=== PATIENT | female | born 1985 | race Two or more races ===

== ENCOUNTER 2016-10-16 13:04 | Emergency (ER) | payer MEDICAID, OTHER ==
[~2016-10-16] VITALS: Ht 162.6 cm; Wt 81.6 kg
[2016-10-16 14:04] LABS: Basophils # (auto) 0 uL; Basophils % (auto) 0.4 % (0.0-2.0); Eosinophils # (auto) 0.2 uL; Eosinophils % (auto) 1.8 % (0.0-7.0); Hematocrit 37.8 % (36.0-46.0); Hemoglobin 12.1 g/dL (12.2-16.2); Lymphocytes # (auto) 2.1 uL; Lymphocytes % (auto) 18.9 % (10.0-50.0); Mean Corpuscular Hemoglobin 27.3 pg (28.0-32.0); Mean Corpuscular Hgb Conc. 31.9 g/dL (32.0-36.0); Mean Corpuscular Volume 85.7 fL (80.0-100.0); Mean Platelet Volume 7.2 fL (7.4-10.4); Monocytes # (auto) 0.5 uL; Monocytes % (auto) 4.1 % (0.0-12.0); Neutrophils # (auto) 8.3 uL; Neutrophils % (auto) 74.8 % (37.0-80.0); Platelet Count (auto) 294 10^3/uL (140-450); Red Cell Distribution Width 14.6 % (11.6-16.0); White Blood Cell 11.1 10^3/uL (4.4-10.8)
[2016-10-16 14:14] LABS: Urine Bilirubin Negative (Negative); Urine Blood Negative /uL (Negative); Urine Color Yellow (Yellow); Urine Glucose Normal (Normal); Urine Ketone Negative (Negative); Urine Mucus FEW (None Seen); Urine Nitrite Negative (Negative); Urine RBC <1 /hpf (0 - 4); Urine Squamous Epithelial Cell MOD /hpf (<5); Urine Urobilinogen Normal (Negative)
[2016-10-16] MEDS ORDERED: SODIUM CHLORIDE 0.9% 1,000 ML IV ONE (21:30)
[2016-10-16 21:57] LABS: Albumin 3.7 g/dL (3.4-5.0); BUN/Creatinine Ratio 12.8; Bilirubin, Total 0.4 mg/dL (0.2-1.0); Potassium 3.7 mmol/L (3.5-5.1)
[2016-10-16 23:04] VITALS: BP 122/67
[2016-10-16] MEDS ORDERED: NALBUPHINE HCL 10 MG/1ml INJECTION IV ONE (23:15)
== END 2016-10-16 23:28 | disposition home or self-care (01) ==
LOC: ER 13:11
DX: O26.891 Other specified pregnancy related conditions, first trimester (principal); O99.331 Smoking (tobacco) complicating pregnancy, first trimester; F17.210 Nicotine dependence, cigarettes, uncomplicated; Z87.442 Personal history of urinary calculi; Z3A.08 8 weeks gestation of pregnancy
CPT/HCPCS: 36415; 76705; 76801; 80053; 81001; 84702; 85025; 96361; 96374; 99285; J2300; J7030

== ENCOUNTER 2017-01-21 14:10 | Observation (INO) | payer MEDICAID ==
[~2017-01-21] VITALS: Ht 152.4 cm; Wt 84.8 kg
[2017-01-21] MEDS: LACTATED RINGER'S 2,000 ML IV ONE (15:15)
== END 2017-01-21 16:33 | disposition home or self-care (01) | DRG 566 ==
LOC: LDRP 14:10
PROVIDERS: ADMIT Obstetrics & Gynecology; ATTEND Obstetrics & Gynecology
DX: O26.892 Other specified pregnancy related conditions, second trimester (principal); Z3A.23 23 weeks gestation of pregnancy
CPT/HCPCS: 59025; 81002; 96360; G0378; 96366

== ENCOUNTER 2017-04-13 09:45 | Inpatient (IN) | payer MEDICAID ==
[~2017-04-13] VITALS: Ht 152.4 cm; Wt 90.7 kg
[2017-04-13] MEDS ORDERED: LACTATED RINGER'S 1,000 ML IV ONE (10:23)
[2017-04-13] MEDS ORDERED: LACTATED RINGER'S 1,000 ML IV SCH (10:23)
[2017-04-13] MEDS ORDERED: CLINDAMYCIN 900MG IV 50 ML IV ONE (11:00)
[2017-04-13] MEDS ORDERED: BETAMETHASONE ACET (6MG/ML) 5ML VIAL ONE (11:05)
[2017-04-13 11:55] LABS: Basophils # (auto) 0.1 uL; Basophils % (auto) 0.4 % (0.0-2.0); CONDITION Y; Eosinophils # (auto) 0.2 uL; Eosinophils % (auto) 1.5 % (0.0-7.0); Hematocrit 34.4 % (36.0-46.0); Hemoglobin 11.6 g/dL (12.2-16.2); Lymphocytes # (auto) 2.4 uL; Lymphocytes % (auto) 18.4 % (10.0-50.0); Mean Corpuscular Hemoglobin 28.3 pg (28.0-32.0); Mean Corpuscular Hgb Conc. 33.8 g/dL (32.0-36.0); Mean Corpuscular Volume 83.8 fL (80.0-100.0); Mean Platelet Volume 7.6 fL (7.4-10.4); Monocytes # (auto) 0.6 uL; Monocytes % (auto) 4.3 % (0.0-12.0); Neutrophils # (auto) 9.9 uL; Neutrophils % (auto) 75.4 % (37.0-80.0); Platelet Count (auto) 365 10^3/uL (140-450); Red Cell Distribution Width 14.4 % (11.6-16.0); White Blood Cell 13.2 10^3/uL (4.4-10.8)
[2017-04-13 11:58] LABS: Urine Bilirubin Negative (Negative); Urine Blood TRACE /uL (Negative); Urine Color Yellow (Yellow); Urine Glucose Normal (Normal); Urine Ketone Negative (Negative); Urine Mucus FEW (None Seen); Urine Nitrite Negative (Negative); Urine RBC 3 /hpf (0 - 4); Urine Squamous Epithelial Cell MOD /hpf (<5); Urine Urobilinogen Normal (Negative)
[2017-04-13 12:09] LABS: INR 0.91 (0.9-1.15); Partial Thromboplastin Time 24.8 sec (22.64-33.71); Prothrombin Time 9.9 sec (9.37-12.3)
[2017-04-13 12:18] LABS: Albumin 2.5 g/dL (3.4-5.0); BUN/Creatinine Ratio 12.2; Bilirubin, Total 0.2 mg/dL (0.2-1.0); Calcium 8.5 mg/dL (8.5-10.1); Total Protein 6.5 g/dL (6.4-8.2)
[2017-04-13] MEDS: LACTATED RINGER'S 1,000 ML IV SCH ×2 (12:38→20:38)
[2017-04-13] MEDS ORDERED: LACT. RINGERS/OXYTOCIN 20UNITS 1,000 ML IV SCH (12:38)
[2017-04-13] MEDS ORDERED: PHISODERM TOP SOLN 240ML BTL TOP PRN (12:45)
[2017-04-13] MEDS ORDERED: LIDOCAINE 2%HCL (LOCAL ANESTH.) INJ 20ML MDV IJ PRN (12:45)
[2017-04-13] MEDS ORDERED: WITCH HAZEL-GLYCERIN PAD TOP PRN (12:45)
[2017-04-13] MEDS ORDERED: NALBUPHINE HCL 10 MG/1ml INJECTION IV PRN (12:45)
[2017-04-13] MEDS ORDERED: DERMOPLAST 60ML BOTTLE TOP PRN (12:45)
[2017-04-13] MEDS: CLINDAMYCIN 900MG IV 50 ML IV SCH (19:03)
[2017-04-13] MEDS ORDERED: BETAMETHASONE ACET (6MG/ML) 5ML VIAL IM SCH (22:00)
[2017-04-14] MEDS: CLINDAMYCIN 900MG IV 50 ML IV SCH ×3 (03:09→19:25)
[2017-04-14] MEDS: BUTORPHANOL TARTRATE 2 MG/1 ML VIAL IV PRN ×2 (03:58→23:29)
[2017-04-14] MEDS: LACTATED RINGER'S 1,000 ML IV SCH ×3 (04:38→23:27)
[2017-04-14] MEDS ORDERED: BETAMETHASONE ACET (6MG/ML) 5ML VIAL IM SCH (11:30)
[2017-04-15] MEDS: CLINDAMYCIN 900MG IV 50 ML IV SCH (03:43)
[2017-04-15] MEDS: LACTATED RINGER'S 1,000 ML IV SCH (04:38)
[2017-04-15] MEDS: BUTORPHANOL TARTRATE 2 MG/1 ML VIAL IV PRN (04:51)
[2017-04-15] MEDS ORDERED: METHYLERGONOVINE MALEATE 0.2 MG/ML AMP IM ONE (07:45)
[2017-04-15] MEDS ORDERED: ACETAMINOPHEN 325 MG TAB PO PRN (07:45)
[2017-04-15] MEDS ORDERED: LACT. RINGERS/OXYTOCIN 20UNITS 1,000 ML IV SCH (08:36)
[2017-04-15] MEDS: IBUPROFEN 600 MG TAB PO PRN ×2 (09:23→16:39)
[2017-04-15] MEDS ORDERED: PREN-96 PO (11:39)
[2017-04-15] MEDS ORDERED: DOCU-94 PO (11:39)
[2017-04-15 11:41] VITALS: BP 118/59
[2017-04-15 16:27] VITALS: BP 133/76
[2017-04-15] MEDS: ACCU-CHEK COMFORT CURVE STRIP VI SCH (18:04)
[2017-04-15 19:15] VITALS: BP 121/70
[2017-04-15 23:40] VITALS: BP 118/60
[2017-04-16] MEDS: ACCU-CHEK COMFORT CURVE STRIP VI SCH (00:07)
[2017-04-16] MEDS: IBUPROFEN 600 MG TAB PO PRN ×2 (00:15→19:27)
[2017-04-16 04:30] VITALS: BP 110/59
[2017-04-16 07:30] VITALS: BP 130/81
[2017-04-16 12:17] VITALS: BP 130/76
[2017-04-16 15:48] VITALS: BP 114/74
[2017-04-16 19:20] VITALS: BP 123/76
[2017-04-16 23:08] VITALS: BP 123/74
[2017-04-17 03:07] VITALS: BP 118/60
[2017-04-17] MEDS: IBUPROFEN 600 MG TAB PO PRN ×2 (03:14→08:03)
[2017-04-17] MEDS ORDERED: MEASLES, MUMPS & RUBELLA VAC(MMRII) 0.5ML SC ONE (07:30)
[2017-04-17] MEDS ORDERED: TETANUS-DIPTH-ACEL PERTUSSIS 0.5ML SYRG IM ONE (07:30)
[2017-04-17 08:00] VITALS: BP 112/63
== END 2017-04-17 11:15 | disposition home or self-care (01) | DRG 560 ==
LOC: OBSVTOIN 09:45 → LDRP 09:45
PROVIDERS: ADMIT Specialist; ATTEND Specialist
PROC: 10E0XZZ Delivery of Products of Conception, External Approach (ICD-10-PCS; principal; 2017-04-17)
DX: O62.3 Precipitate labor (principal); O99.344 Other mental disorders complicating childbirth; F31.9 Bipolar disorder, unspecified; O42.913 Preterm premature rupture of membranes, unspecified as to length of time between rupture and onset of labor, third trimester; Z37.0 Single live birth; Z88.0 Allergy status to penicillin; Z3A.34 34 weeks gestation of pregnancy; Z88.8 Allergy status to other drugs, medicaments and biological substances; Z23 Encounter for immunization
CPT/HCPCS: 36415; 59025; 59409; 76805; 76818; 80053; 80307; 81001; 81002; 82947; 82948; 82962; 85025; 85610; 85730; 86850; 86900; 86901; 90472; 90715; 96361; 96366; 96372; 96375; J2590; J3490

== ENCOUNTER 2019-07-14 14:02 | Emergency (ER) | payer MEDICAID ==
[~2019-07-14] VITALS: Ht 152.4 cm; Wt 82.6 kg
[~2019-07-14 14:02] MED LIST: DOCU-94 PO; PREN-96 PO
[2019-07-14 14:30] LABS: Basophils # (auto) 0.1 uL; Eosinophils # (auto) 0.2 uL; Lymphocytes # (auto) 2.6 uL; Mean Corpuscular Hgb Conc. 33.3 g/dL (32.0-36.0); Monocytes # (auto) 0.3 uL; White Blood Cell 8.2 10^3/uL (4.4-10.8)
[2019-07-14 14:32] LABS: Basophils % (auto) 1.3 % (0.0-2.0); Eosinophils % (auto) 2.4 % (0.0-7.0); Hematocrit 37.9 % (36.0-46.0); Hemoglobin 12.6 g/dL (12.2-16.2); Lymphocytes % (auto) 31.3 % (10.0-50.0); Mean Corpuscular Hemoglobin 26.6 pg (28.0-32.0); Mean Corpuscular Volume 79.8 fL (80.0-100.0); Monocytes % (auto) 3.4 % (0.0-12.0); Neutrophils % (auto) 61.6 % (37.0-80.0); Platelet Count (auto) 354 10^3/uL (140-450); Red Blood Cells 4.75 10^6/uL (4.0-5.20); Red Cell Distribution Width 15.2 % (11.8-14.3)
[2019-07-14 14:53] LABS: BUN/Creatinine Ratio 10.1; Calcium 8.5 mg/dL (8.5-10.1); Potassium 3.9 mmol/L (3.5-5.1)
[2019-07-14 14:56] LABS: Bilirubin, Total 0.4 mg/dL (0.2-1.0); Total Protein 7.4 g/dL (6.4-8.2)
[2019-07-14 15:08] LABS: Urine Bacteria FEW /hpf (None Seen); Urine Blood Negative /uL (Negative); Urine Specific Gravity 1.018 (1.001-1.035); Urine WBC 3 /hpf (0 - 5)
[2019-07-14 19:47] VITALS: BP 106/61
== END 2019-07-14 20:10 | disposition home or self-care (01) ==
LOC: ER 14:02
DX: N39.0 Urinary tract infection, site not specified (principal); F17.210 Nicotine dependence, cigarettes, uncomplicated; Z88.0 Allergy status to penicillin; Z79.899 Other long term (current) drug therapy
CPT/HCPCS: 36415; 74176; 80053; 81001; 81025; 85025

== ENCOUNTER 2021-01-10 16:32 | Emergency (ER) | payer MEDICAID ==
[~2021-01-10] VITALS: Ht 152.4 cm; Wt 79.4 kg
[2021-01-10 17:38] VITALS: BP 150/89
== END 2021-01-10 17:52 | disposition home or self-care (01) ==
LOC: ER 16:32
DX: U07.1 COVID-19 (principal); J40 Bronchitis, not specified as acute or chronic; F17.210 Nicotine dependence, cigarettes, uncomplicated
CPT/HCPCS: 71045

== ENCOUNTER 2021-12-12 09:27 | Emergency (ER) | payer MEDICAID ==
[~2021-12-12] VITALS: Ht 152.4 cm; Wt 81.6 kg
[2021-12-12 10:03] LABS: Basophils # (auto) 0.1 10 ^3/uL (0-0.2); Basophils % (auto) 1.4 % (0.0-2.0); Eosinophils # (auto) 0.2 10 ^3/uL (0-0.8); Eosinophils % (auto) 2.4 % (0.0-7.0); Hematocrit 39.6 % (36.0-46.0); Hemoglobin 13.3 g/dL (12.2-16.2); Lymphocytes # (auto) 1.8 10 ^3/uL (0.4-5.4); Mean Corpuscular Hemoglobin 28.6 pg (28.0-32.0); Mean Corpuscular Hgb Conc. 33.5 g/dL (32.0-36.0); Mean Corpuscular Volume 85.4 fL (80.0-100.0); Monocytes # (auto) 0.3 10 ^3/uL (0-1.3); Monocytes % (auto) 3.9 % (0.0-12.0); Neutrophils # (auto) 4.9 10 ^3/uL (1.6-8.6); Neutrophils % (auto) 67.3 % (37.0-80.0); Red Blood Cells 4.64 10^6/uL (4.0-5.20); Red Cell Distribution Width 13.9 % (11.8-14.3); White Blood Cell 7.3 10^3/uL (4.4-10.8)
[2021-12-12 10:26] LABS: Calcium 8.8 mg/dL (8.5-10.1); Potassium 4.1 mmol/L (3.5-5.1)
[2021-12-12 10:32] LABS: BUN/Creatinine Ratio 11.1; Total Protein 7.8 g/dL (6.4-8.2)
[2021-12-12 11:26] VITALS: BP 129/78
[2021-12-12] MEDS ORDERED: ACET-1158 PO (11:58)
[2021-12-12] MEDS ORDERED: ALBUAER3 IN (11:58)
[2021-12-12] MEDS ORDERED: BENZ100C19 PO (11:58)
[2021-12-12] MEDS ORDERED: CLIN300C8 PO (11:58)
[2021-12-12] MEDS ORDERED: PRED20TA2 PO (11:58)
[2021-12-12] MEDS ORDERED: methylPREDNISolone SOD SUCC 125 MG/2 ML VL IM ONE (12:00)
[2021-12-12] MEDS ORDERED: cefTRIAXone SOD 1,000 MG VL IM ONE (12:00)
== END 2021-12-12 12:31 | disposition home or self-care (01) ==
LOC: ER 09:27
DX: J06.9 Acute upper respiratory infection, unspecified (principal); F17.210 Nicotine dependence, cigarettes, uncomplicated; J45.909 Unspecified asthma, uncomplicated; Z87.442 Personal history of urinary calculi; Z20.822 Contact with and (suspected) exposure to COVID-19
CPT/HCPCS: 36415; 71046; 80053; 84484; 85025; 85379; 87426; 96372; 99284; J0696; J2930

== ENCOUNTER 2023-11-29 19:39 | Emergency (ER) | payer MEDICAID ==
[~2023-11-29] VITALS: Ht 152.4 cm; Wt 84.5 kg
[~2023-11-29 19:39] MED LIST changes: +ACET500T58 PO; +ALBUAER3 IN; +BENZ100C19 PO; +CLIN300C70 PO; +PRED20TA2 PO
[2023-11-29] MEDS ORDERED: IBUP-1455 PO (20:26)
[2023-11-29] MEDS ORDERED: DIC250C PO (20:26)
[2023-11-29] MEDS: IBUPROFEN 600 MG TAB PO ONE (21:27)
[2023-11-29] MEDS: CEPHALEXIN 250 MG CAP PO ONE (21:27)
[2023-11-29 23:55] VITALS: BP 132/77; PULSE 77; RESP 17; TEMP 97.6; O2SAT 96
== END 2023-11-29 23:57 | disposition home or self-care (01) ==
LOC: ER 19:39
DX: N61.1 Abscess of the breast and nipple (principal); J45.909 Unspecified asthma, uncomplicated; F17.210 Nicotine dependence, cigarettes, uncomplicated; Z87.442 Personal history of urinary calculi; Z88.8 Allergy status to other drugs, medicaments and biological substances; Z79.899 Other long term (current) drug therapy

== ENCOUNTER 2023-12-16 11:50 | Emergency (ER) | payer MEDICAID ==
[~2023-12-16] VITALS: Ht 152.4 cm; Wt 83.3 kg
[~2023-12-16 11:50] MED LIST changes: +DIC250C PO; +IBUP-1455 PO
[2023-12-16 12:02] VITALS: BP 145/85; PULSE 73; RESP 16; TEMP 97.3; O2SAT 98
[2023-12-16] MEDS ORDERED: CYCL-837 PO (14:22)
[2023-12-16] MEDS: methylPREDNISolone SOD SUCC 125 MG/2 ML VL IM ONE (14:50)
[2023-12-16] MEDS: KETOROLAC TROMETH 30 MG/ML 1ML VIAL IM ONE (14:51)
== END 2023-12-16 15:00 | disposition home or self-care (01) ==
LOC: ER 11:50
DX: F41.9 Anxiety disorder, unspecified (principal); M43.6 Torticollis; J45.909 Unspecified asthma, uncomplicated; F17.210 Nicotine dependence, cigarettes, uncomplicated; Z79.1 Long term (current) use of non-steroidal anti-inflammatories (NSAID); Z79.2 Long term (current) use of antibiotics; Z79.899 Other long term (current) drug therapy; Z88.0 Allergy status to penicillin
CPT/HCPCS: 96372; 99284; J1885; J2930

== ENCOUNTER 2024-12-16 23:22 | Inpatient (IN) | payer MEDICAID ==
[~2024-12-16] VITALS: Ht 152.4 cm; Wt 81.1 kg
[~2024-12-16 23:22] MED LIST changes: +CLIN1CAP70 PO; -CLIN300C70 PO; +CYCL-837 PO
[2024-12-16 23:50] LABS: Urine Bacteria None Seen /hpf (None Seen)
[2024-12-17] VITALS (8 sets, daily range): BP systolic 120–137; BP diastolic 72–78; PULSE 67–81; RESP 16–18; TEMP 97.2–98.2; O2SAT 96–98
[2024-12-17 00:03] LABS: Urine Blood Negative /uL (Negative); Urine Clarity Clear (Clear); Urine Color Yellow (Yellow); Urine Mucus FEW (None Seen); Urine Protein, UAD Negative (Negative); Urine Specific Gravity 1.029 (1.001-1.035); Urine Squamous Epithelial Cell FEW /hpf (<5); Urine Urobilinogen 2 mg/dL (Negative); Urine WBC < 1 /HPF (0-5); Urine pH 5.5 (5.0-9.0)
--- NOTE | 2024-12-17 00:07 | ED.PDOC ---
HPI (NEURO) HPI Comments 39-year-old female came to emergency room for left-sided weakness. Patient has a history of asthma, states for the past 2 weeks, she has been having intermittent episodes left-sided numbness of upper and lower extremities, associated woth left sided headaches, tight, dizziness, slurred speech and blurring of vision. States left leg numbness gets so bad that at times she has to drag her left leg. States left-sided numbness occurs whenever she gets upset. Patient was advised by her PCP to go to the ER to rule out TIA. Blood pressure upon arrival was 122/66 mmHg. Chief Complaint: Left Sided Weakness Time Seen by MD: 00:04 Primary Care Provider: SHEMAR Reviewed Notes: Nurses Notes Information Source: Patient Mode of Arrival: Ambulatory Severity: Moderate Timing: Days Duration: Intermittent Associated Signs and Symptoms: Headache, Numbness Review of Systems REVIEW OF SYSTEMS: No fever, no chills, or fatigue HEENT: No sore throat, no earache, no congestion, no neck pain. Cardiac: No chest pain. No palpitations. Lungs: No shortness of breath, no cough. GI: No nausea, no vomiting, no diarrhea, no constipation, no abdominal pain : No dysuria, frequency, or urgency. No hematuria. Musculoskeletal: No joint pain , no joint swelling, no extremity edema. Skin: No rash, no itching. Neuro: (+) headache, no dizziness, no weakness (+) left sided numbness, (+) slurred speech Vital Signs Vital Signs Date Time Temp Pulse Resp B/P (MAP) Pulse Ox O2 Delivery O2 Flow Rate FiO2 12/17/24 02:22 97.7 74 18 137/72 (93) 96 97.7 12/17/24 02:22 Room Air Physical Exam General: Awake, alert and oriented. No acute distress. Skin: Skin in warm, dry and intact. Appropriate color for ethnicity. Nailbeds pink with no cyanosis. HEENT: The head is normocephalic and atraumatic. Conjunctivae are clear without exudates or hemorrhage. Sclera is non-icteric. EOM are intact. No signs of nystagmus. Eyelids are normal in appearance without swelling or lesions. Oral mucosa is pink and moist Neck: The neck is supple with normal range of motion. No JVD. Cardiac: Heart rate and rhythm are normal. No murmurs, gallops, or rubs are auscultated. Respiratory: No signs of respiratory distress. Lung sounds are clear in all lobes bilaterally without rales, ronchi, or wheezes. Abdominal: Abdomen is soft, non-tender without distention. Bowel sounds are present and normoactive in all four quadrants. Extremities: Upper and lower extremities are atraumatic in appearance without deformity or edema. Neurological: The patient is awake, alert and oriented to person, place, and time with normal speech. Speech is clear. There is no facial asymmetry. Strength in upper and lower extremities intact. Coordination intact. Psychiatric: Appropriate mood and affect. Good judgement and insight. No visual or auditory hallucinations. Past Medical History PAST MEDICAL HISTORY: Asthma, Kidney Stones Surgical History: Denies all surgeries [employer] History: Denies all [employer] Hx Family History Family History: Unknown, Family hx of HTN Social History Smoker: Cigarettes, Less Than 1 Pack/Day Alcohol: Rarely Drugs: Denies Drug Use Lives In: Home Was a procedure done? Was a procedure done?: No Differential Diagnosis (SZ) CVA: Kwon's Palsy, CVA, Encephalopathy, Hypoglycemia, Hypoxemia, Mass Lesion, TIA, Other (Migraine 100) X-Ray, Labs, Meds, VS Vital Signs Date Time Temp Pulse Resp B/P (MAP) Pulse Ox O2 Delivery O2 Flow Rate FiO2 12/17/24 02:22 97.7 74 18 137/72 (93) 96 97.7 12/17/24 02:22 74 18 96 Room Air 12/16/24 23:42 97.9 79 18 122/66 (84) 97 Lab Test 12/17/24 00:00 12/16/24 23:49 12/16/24 23:37 Range/Units White Blood Count 10.0 4.4-10.8 10^3/uL Red Blood Count 4.47 4.0-5.20 10^6/uL Hemoglobin 13.5 12.2-16.2 g/dL Hematocrit 38.9 36.0-46.0 % Mean Corpuscular Volume 87.1 80.0-100.0 fL Mean Corpuscular Hemoglobin 30.1 28.0-32.0 pg Mean Corpuscular Hemoglobin Concent 34.6 32.0-36.0 g/dL Red Cell Distribution Width 13.4 11.8-14.3 % Platelet Count 299 140-450 10^3/uL Mean Platelet Volume 6.8 L 6.9-10.8 fL Neutrophils (%) (Auto) 56.0 37.0-80.0 % Lymphocytes (%) (Auto) 36.3 10.0-50.0 % Monocytes (%) (Auto) 4.1 0.0-12.0 % Eosinophils (%) (Auto) 2.8 0.0-7.0 % Basophils (%) (Auto) 0.8 0.0-2.0 % Neutrophils # (Auto) 5.6 1.6-8.6 10 ^3/uL Lymphocytes # (Auto) 3.6 0.4-5.4 10 ^3/uL Monocytes # (Auto) 0.4 0-1.3 10 ^3/uL Eosinophils # (Auto) 0.3 0-0.8 10 ^3/uL Basophils # (Auto) 0.1 0-0.2 10 ^3/uL Nucleated Red Blood Cells 0.1 % Sodium Level 140 136-145 mmol/L Potassium Level 4.1 3.5-5.1 mmol/L Chloride Level 108 H 98-107 mmol/L Carbon Dioxide Level 25 20-31 mmol/L Anion Gap 7 5-15 Blood Urea Nitrogen 8 L 9-23 mg/dL Creatinine 0.68 0.550-1.02 mg/dL Glomerular Filtration Rate Calc 113 >90 mL/min BUN/Creatinine Ratio 11.8 10.0-20.0 Serum Glucose 130 H 74-106 mg/dL Calcium Level 10.1 8.7-10.4 mg/dL Total Bilirubin 0.4 0.2-1.0 mg/dL Aspartate Amino Transferase (AST) 22 13-40 U/L Alanine Aminotransferase (ALT) 55 H 7-40 U/L Alkaline Phosphatase 101 46-116 U/L Troponin I High Sensitivity < 3 L </=34 ng/L Total Protein 7.2 5.7-8.2 g/dL Albumin 4.9 H 3.2-4.8 g/dL Urine Color Yellow Yellow Urine Clarity Clear Clear Urine pH 5.5 5.0-9.0 Urine Specific [place] 1.029 1.001-1.035 Urine Protein Negative Negative Urine Ketones Trace Negative Urine Blood Negative Negative /uL Urine Nitrite Negative Negative Urine Bilirubin Negative Negative Urine Urobilinogen 2 H Negative mg/dL Urine Leukocyte Esterase Negative Negative /uL Urine RBC 1 0 - 4 /hpf Urine Microscopic WBC < 1 0-5 /HPF Urine Squamous Epithelial Cells Few <5 /hpf Urine Bacteria None seen None Seen /hpf Urine Mucus Few None Seen Urine Glucose Normal Normal mg/dL POC Glucose 122 H 70-106 mg/dl PROCEDURE(s): Anghedneck - ANGIO HEAD/Neck INDICATION: Intermittent left-sided weakness and numbness COMPARISON: None TECHNIQUE: CTA imaging of the head and neck was performed following the uneventful administration of intravenous contrast. Sagittal and coronal reformatted images were obtained from the source data. 3D/MIP post-processing of the source data set was performed and reviewed by the radiologist. All CT scans at this medical facility are performed using dose modulation techniques as appropriate to a performed exam including the following: Automated exposure control was utilized; adjustment of the MA and/or KV according to patient size; and use of iterative reconstruction technique. Radiation Dose Information: CT Dose: CTDI volume is 20.8 mGy. Dose-length product is 947.5 mGy*cm FINDINGS: There is a 3-vessel arch. The common carotid arteries are widely patent with left retropharyngeal course internal carotid, middle cerebral, and anterior cerebral arteries are widely patent. The vertebral arteries are left dominant. The basilar artery and posterior circulation appears patent. Visualized intracranial structures appear grossly unremarkable. Ventricles appear appropriate in size and symmetry. No evidence of midline shift. The thyroid gland appears prominent. Prominent prevascular lymph node measuring up to 1.0 cm. Pulmonary artery appears dilated measuring 4.0 cm. IMPRESSION: 1. Essentially unremarkable CT angiography of the head and neck with ret ropharyngeal course of the left common carotid artery. 2. Dilated pulmonary arterial trunk measuring 4.0 cm can be be seen in pulmonary arterial hypertension. 3. Enlarged thyroid gland. Time of 1ST Reevaluation: 00:00 Reevaluation 1ST: Unchanged Patient Education/Counseling: Diagnosis, Treatment Family Education/Counseling: No Family Present Departure 1 Departure Time of Disposition: 03:27 Impression: Primary Impression: Left-sided weakness Disposition: ADMITTED INPATIENT Condition: Stable Comments 39-year-old female with several weeks of intermittent episodes of left-sided weakness associated with headache, left-sided facial drooping. Patient presents to the emergency department asymptomatic at this time however she was referred from her PCP office today for further evaluation for suspected TIAs. No neuro deficit on exam today. CT angiogram reviewed, negative. Patient admitted for further treatment, evaluation and monitoring including MRI and Neurology consultation. Extensive evaluation was performed in attempt to identify or rule out: (See differential diagnosis section) The following tests were ordered, and results were reviewed by me: (See diagnostic results section) The following test were independently interpreted by me: . N/A I reviewed and agreed with the following test results read by other providers: N/A I reviewed the following notes from the pt's past medical encounters: (None available at this time) Additional information was gathered from interviewing the following independent historians: N/A Discussion of management or test interpretation with external physician/other qualified health transitional care nurse: N/A Addressed an acute or chronic illness that poses a threat to life or bodily function: Intermittent left-sided weakness Decision regarding hospitalization or escalation of hospital level of care: Risk and benefits of admission for further treatment of patient's condition was considered. Due to patient's current clinical condition, high risk of decline and poor outcome if discharged and need for further inpatient management and monitoring, patient will be admitted to the hospital. Discussed this with the patient Critical Care Note Critical Care Time?: No I personally scribed for DOMINGO DELGADO MD ([email or web address]) on 12/17/24 at 00:07. Electronically submitted by Faustino Thompson ([email or web address]). I personally scribed for DOMINGO DELGDAO MD ([email or web address]) on 12/17/24 at 03:38. Electronically submitted by Faustino Thompson ([email or web address]). DOMINGO DELGADO MD Dec 17, 2024 00:07
[2024-12-17 00:16] LABS: Basophils # (auto) 0.1 10 ^3/uL (0-0.2); Basophils % (auto) 0.8 % (0.0-2.0); Eosinophils # (auto) 0.3 10 ^3/uL (0-0.8); Eosinophils % (auto) 2.8 % (0.0-7.0); Hematocrit 38.9 % (36.0-46.0); Hemoglobin 13.5 g/dL (12.2-16.2); Lymphocytes # (auto) 3.6 10 ^3/uL (0.4-5.4); Lymphocytes % (auto) 36.3 % (10.0-50.0); Mean Corpuscular Hemoglobin 30.1 pg (28.0-32.0); Mean Corpuscular Hgb Conc. 34.6 g/dL (32.0-36.0); Mean Corpuscular Volume 87.1 fL (80.0-100.0); Monocytes # (auto) 0.4 10 ^3/uL (0-1.3); Monocytes % (auto) 4.1 % (0.0-12.0); Neutrophils # (auto) 5.6 10 ^3/uL (1.6-8.6); Nucleated Red Blood Cells % 0.1 %; Platelet Count (auto) 299 10^3/uL (140-450); Red Blood Cells 4.47 10^6/uL (4.0-5.20); Red Cell Distribution Width 13.4 % (11.8-14.3)
[2024-12-17 01:17] LABS: Alanine Aminotransferase 55 U/L (7-40); Albumin 4.9 g/dL (3.2-4.8); Alkaline Phosphatase 101 U/L (46-116); Anion Gap 7 (5-15); Aspartate Aminotransferase 22 U/L (13-40); Bilirubin, Total 0.4 mg/dL (0.2-1.0); Calcium 10.1 mg/dL (8.7-10.4); Carbon Dioxide 25 mmol/L (20-31); Chloride 108 mmol/L (98-107); Glucose 130 mg/dL (74-106); Potassium 4.1 mmol/L (3.5-5.1); Sodium 140 mmol/L (136-145); Total Protein 7.2 g/dL (5.7-8.2)
[2024-12-17 01:48] LABS: BUN/Creatinine Ratio 11.8 (10.0-20.0)
[2024-12-17 01:57] LABS: Blood Urea Nitrogen 8 mg/dL (9-23)
[2024-12-17] MEDS: IOHEXOL 350 MG/ML 100ML IJ ONE (02:28)
--- NOTE | 2024-12-17 03:14 | DVH ---
INDICATION: Intermittent left-sided weakness and numbness COMPARISON: None TECHNIQUE: CTA imaging of the head and neck was performed following the uneventful administration of intravenous contrast. Sagittal and coronal reformatted images were obtained from the source data. 3D/MIP post-processing of the source data set was performed and reviewed by the radiologist. All CT s cans at this medical facility are performed using dose modulation techniques as appropriate to a perf ormed exam including the following: Automated exposure control was utilized; adjustment of the MA and /or KV according to patient size; and use of iterative reconstruction technique. Radiation Dose Information: CT Dose: CTDI volume is 20.8 mGy. Dose-length product is 947.5 mGy*cm FINDINGS: There is a 3-vessel arch. The common carotid arteries are widely patent with left retropharyngeal cou rse internal carotid, middle cerebral, and anterior cerebral arteries are widely patent. The vertebra l arteries are left dominant. The basilar artery and posterior circulation appears patent. Visualized intracranial structures appear grossly unremarkable. Ventricles appear appropriate in size and symmetry. No evidence of midline shift. The thyroid gland appears prominent. Prominent prevascul ar lymph node measuring up to 1.0 cm. Pulmonary artery appears dilated measuring 4.0 cm. IMPRESSION: 1. Essentially unremarkable CT angiography of the head and neck with retropharyngeal course of the le ft common carotid artery. 2. Dilated pulmonary arterial trunk measuring 4.0 cm can be be seen in pulmonary arterial hypertensio n. 3. Enlarged thyroid gland. HS:Y
[2024-12-17] MEDS ORDERED: ONDANSETRON HCL 4 MG/2 ML VIAL IV PRN (04:45)
[2024-12-17] MEDS ORDERED: NITROGLYCERIN 0.4 MG SL TAB SL PRN (04:45)
[2024-12-17] MEDS ORDERED: HYDROcodone-ACET 5/325MG TAB PO PRN (04:45)
[2024-12-17] MEDS ORDERED: ACETAMINOPHEN 325 MG TAB PO PRN (04:45)
[2024-12-17] MEDS ORDERED: DOCUSATE SOD 100 MG CAP PO PRN (04:45)
[2024-12-17] MEDS ORDERED: MORPHINE SULFATE INJ 2 MG/ml SYRG IV PRN (04:45)
--- NOTE | 2024-12-17 05:04 | DVHHP2 ---
History of Present Illness Reason for Visit: Left-sided weakness History of Present Illness The patient is a 39-year-old female with past medical history of asthma and kidney stones who presented to [facility] ED with complaint of left- sided weakness. Patient reports experiencing intermittent episode of left-sided weakness of upper and lower extremity for the past 2 weeks, associated headaches, lightheadedness, dizziness, slurred speech, blurry vision, left leg numbness, getting worse today that prompted this visit. Patient was seen and evaluated in the ED, laboratory data shows WBC 10.0, platelets 299, sodium 140, potassium 4.1, BUN 8, creatinine 0.68, glucose 130, troponin 3, blood pressure 137/72, heart rate 74, temperature 97.7 F, O2 saturation 96% on room air. CT of the head/neck revealing dilated pulmonary artery trunk measuring 4.8 cm can be seen in pulmonary arterial hypertension, enlarged thyroid gland. Neurology will follow the patient. Please see medication orders section in the computer. On my assessment, patient denies chest pain, no headache, no diaphoresis, no shortness of breath, no nausea, no vomiting, no fever, no chills. Patient was admitted for further evaluation and medical management. Past Medical History Asthma, Kidney Stones Past Surgical History Denies all surgeries Family History Reviewed, noncontributory to the management of this case. Past Social History Patient lives at home, smokes cigarettes less than 1 pack per day, denies alcohol or illicit drugs abuse. Review of Systems Constitutional: Yes: Weakness; No: Fever, Chills, Sweats, Malaise, Other Eyes: No: Pain, Vision change, Conjunctivae inflammation, Eyelid inflammation, Other, Redness ENT: No: Ear pain, Ear discharge, Nose pain, Nose discharge, Nose congestion, Mouth pain, Mouth swelling, Throat pain, Throat swelling, Other Respiratory: No: Cough, Dry, Shortness of breath, SOB with excertion, Wheezing, Hemoptysis, Pleuritic Pain, Sputum, Wheezing, Other Cardiovascular: Lt Headedness; No: Chest Pain, Palpitations, Orthopnea, Paroxysmal Noc. Dyspnea, Edema, Other Gastrointestinal: No: Nausea, Vomiting, Abdominal Pain, Diarrhea, Constipation, Melena, Hematochezia, Other Genitourinary: No Dysuria, No Frequency, No Incontinence, No Hematuria, No Retention, No Other Musculoskeletal: No: other, neck pain, shoulder pain, arm pain, back pain, hand pain, leg pain, foot pain Skin: No: Rash, Lesions, Jaundice, Bruising, Other Neurological: Weakness (Left-sided), Numbness (Left leg), Other (Dizziness); No: Incoordination, Change in speech, Confusion, Seizures Allergies: Coded Allergies: Latex (Verified Allergy, Unknown, 12/16/24) Penicillin V (Verified Allergy, Unknown, 01/21/17) Uncoded Allergies: ALL CILLINS (Allergy, Unknown, 01/21/17) Exam Vital Signs Vital Signs Date Time Temp Pulse Resp B/P (MAP) Pulse Ox O2 Delivery O2 Flow Rate FiO2 12/17/24 02:22 97.7 74 18 137/72 (93) 96 97.7 12/17/24 02:22 Room Air General Appearance: Alert, Oriented X3, Cooperative, No acute distress HEENT: Atraumatic, PERRLA, EOMI, Mucous membr. moist/pink Respiratory: Clear to auscultation, Normal air movement Cardiovascular: Regular rate, Normal S1, Normal S2, No murmurs Abdominal: Normal bowel sounds, Soft, No tenderness, No hepatospenomegaly, No masses Extremities: No clubbing, No cyanosis, No edema, Normal pulses, No tenderness/swelling Skin: No rashes, No breakdown, No significant lesion Neuro: Normal speech, Normal tone, Sensation intact, Cranial nerves 3-12 NL, Reflexes 2+, Other (Left-sided weakness) Psych/Mental Status: Mental status NL, Mood NL Labs/Xrays Labs Test 12/17/24 00:00 12/16/24 23:49 12/16/24 23:37 Range/Units White Blood Count 10.0 4.4-10.8 10^3/uL Red Blood Count 4.47 4.0-5.20 10^6/uL Hemoglobin 13.5 12.2-16.2 g/dL Hematocrit 38.9 36.0-46.0 % Mean Corpuscular Volume 87.1 80.0-100.0 fL Mean Corpuscular Hemoglobin 30.1 28.0-32.0 pg Mean Corpuscular Hemoglobin Concent 34.6 32.0-36.0 g/dL Red Cell Distribution Width 13.4 11.8-14.3 % Platelet Count 299 140-450 10^3/uL Mean Platelet Volume 6.8 L 6.9-10.8 fL Neutrophils (%) (Auto) 56.0 37.0-80.0 % Lymphocytes (%) (Auto) 36.3 10.0-50.0 % Monocytes (%) (Auto) 4.1 0.0-12.0 % Eosinophils (%) (Auto) 2.8 0.0-7.0 % Basophils (%) (Auto) 0.8 0.0-2.0 % Neutrophils # (Auto) 5.6 1.6-8.6 10 ^3/uL Lymphocytes # (Auto) 3.6 0.4-5.4 10 ^3/uL Monocytes # (Auto) 0.4 0-1.3 10 ^3/uL Eosinophils # (Auto) 0.3 0-0.8 10 ^3/uL Basophils # (Auto) 0.1 0-0.2 10 ^3/uL Nucleated Red Blood Cells 0.1 % Sodium Level 140 136-145 mmol/L Potassium Level 4.1 3.5-5.1 mmol/L Chloride Level 108 H 98-107 mmol/L Carbon Dioxide Level 25 20-31 mmol/L Anion Gap 7 5-15 Blood Urea Nitrogen 8 L 9-23 mg/dL Creatinine 0.68 0.550-1.02 mg/dL Glomerular Filtration Rate Calc 113 >90 mL/min BUN/Creatinine Ratio 11.8 10.0-20.0 Serum Glucose 130 H 74-106 mg/dL Calcium Level 10.1 8.7-10.4 mg/dL Total Bilirubin 0.4 0.2-1.0 mg/dL Aspartate Amino Transferase (AST) 22 13-40 U/L Alanine Aminotransferase (ALT) 55 H 7-40 U/L Alkaline Phosphatase 101 46-116 U/L Troponin I High Sensitivity < 3 L </=34 ng/L Total Protein 7.2 5.7-8.2 g/dL Albumin 4.9 H 3.2-4.8 g/dL Urine Color Yellow Yellow Urine Clarity Clear Clear Urine pH 5.5 5.0-9.0 Urine Specific [place] 1.029 1.001-1.035 Urine Protein Negative Negative Urine Ketones Trace Negative Urine Blood Negative Negative /uL Urine Nitrite Negative Negative Urine Bilirubin Negative Negative Urine Urobilinogen 2 H Negative mg/dL Urine Leukocyte Esterase Negative Negative /uL Urine RBC 1 0 - 4 /hpf Urine Microscopic WBC < 1 0-5 /HPF Urine Squamous Epithelial Cells Few <5 /hpf Urine Bacteria None seen None Seen /hpf Urine Mucus Few None Seen Urine Glucose Normal Normal mg/dL POC Glucose 122 H 70-106 mg/dl PATIENT: EFE FRENCHT: [id number] UNIT: [id number] : 1985 LOC: ER ROOM / BED: / AGE / SEX: 39 / F ADM STATUS: REG ER SERVICE [id number] ORDERING PHYSICIAN: DOMINGO DELGADO MD PROCEDURE(s): Anghedneck - ANGIO HEAD/Neck REASON: Intermittent left-sided weakness and numbness ORDER NUMBER(s): [id number], ACCESSION NUMBER(s): [id number] INDICATION: Intermittent left-sided weakness and numbness COMPARISON: None TECHNIQUE: CTA imaging of the head and neck was performed following the uneventful administration of intravenous contrast. Sagittal and coronal reformatted images were obtained from the source data. 3D/MIP post-processing of the source data set was performed and reviewed by the radiologist. All CT scans at this medical facility are performed using dose modulation techniques as appropriate to a performed exam including the following: Automated exposure control was utilized; adjustment of the MA and/or KV according to patient size; and use of iterative reconstruction technique. Radiation Dose Information: CT Dose: CTDI volume is 20.8 mGy. Dose-length product is 947.5 mGy*cm FINDINGS: There is a 3-vessel arch. The common carotid arteries are widely patent with left retropharyngeal course internal carotid, middle cerebral, and anterior cerebral arteries are widely patent. The vertebral arteries are left dominant. The basilar artery and posterior circulation appears patent. Visualized intracranial structures appear grossly unremarkable. Ventricles appear appropriate in size and symmetry. No evidence of midline shift. The thyroid gland appears prominent. Prominent prevascular lymph node measuring up to 1.0 cm. Pulmonary artery appears dilated measuring 4.0 cm. IMPRESSION: 1. Essentially unremarkable CT angiography of the head and neck with retropharyngeal course of the left common carotid artery. 2. Dilated pulmonary arterial trunk measuring 4.0 cm can be be seen in pulmonary arterial hypertension. 3. Enlarged thyroid gland. Assessment/Plan Assessment/Plan Left-sided weakness Pulmonary hypertension Plan 1. Admit to telemetry unit 2. Breathing treatment 3. Pain control management 4. Management of fluids and electrolytes 5. Consultation for neurology 6. Diagnostic tests head CT 7. DVT prophylaxis on SCDs 8. Repeat labs CBC, CMP in a.m. 9. Continue with current medical management 10. Treatment plan discussed with patient and RN. Patient verbalized understanding. Plan discussed with: Patient, Other (RN) Problem List: (1) Left-sided weakness (2) Pulmonary hypertension Date of Service: Dec 17, 2024 Billing Provider: ALL GUALLPA DNP Common Visit Codes: [id number] INP/OBS CARE (HIGH) ALL GUALLPA DNP Dec 17, 2024 05:04
[2024-12-17] MEDS: SODIUM CHLOR 0.9% PF (SALINE LOCK) 10ML VIAL/SYR IV SCH (05:48)
[2024-12-17 06:28] LABS: Carbon Dioxide 27 mmol/L (20-31); Potassium 4.6 mmol/L (3.5-5.1)
[2024-12-17 06:29] LABS: Anion Gap 6 (5-15); Aspartate Aminotransferase 26 U/L (13-40); BUN/Creatinine Ratio 11.6 (10.0-20.0); Basophils # (auto) 0 10 ^3/uL (0-0.2); Basophils % (auto) 0.6 % (0.0-2.0); Bilirubin, Total 0.4 mg/dL (0.2-1.0); Eosinophils # (auto) 0.2 10 ^3/uL (0-0.8); Eosinophils % (auto) 2.7 % (0.0-7.0); Hematocrit 42.8 % (36.0-46.0); Hemoglobin 14.4 g/dL (12.2-16.2); Lymphocytes # (auto) 2.8 10 ^3/uL (0.4-5.4); Lymphocytes % (auto) 32.6 % (10.0-50.0); Mean Corpuscular Hemoglobin 29.4 pg (28.0-32.0); Mean Corpuscular Hgb Conc. 33.6 g/dL (32.0-36.0); Mean Corpuscular Volume 87.6 fL (80.0-100.0); Monocytes # (auto) 0.4 10 ^3/uL (0-1.3); Monocytes % (auto) 4.7 % (0.0-12.0); Neutrophils # (auto) 5.1 10 ^3/uL (1.6-8.6); Neutrophils % (auto) 59.4 % (37.0-80.0); Nucleated Red Blood Cells % 0.1 %; Platelet Count (auto) 321 10^3/uL (140-450); Red Blood Cells 4.89 10^6/uL (4.0-5.20); Red Cell Distribution Width 13.8 % (11.8-14.3); Sodium 141 mmol/L (136-145); Total Protein 7.8 g/dL (5.7-8.2); White Blood Cell 8.5 10^3/uL (4.4-10.8)
[2024-12-17 06:34] LABS: Chloride 108 mmol/L (98-107)
[2024-12-17 06:35] LABS: Alanine Aminotransferase 64 U/L (7-40); Albumin 5.2 g/dL (3.2-4.8); Alkaline Phosphatase 116 U/L (46-116); Blood Urea Nitrogen 8 mg/dL (9-23); Calcium 10.5 mg/dL (8.7-10.4); Glucose 131 mg/dL (74-106)
[2024-12-17] MEDS ORDERED: OMEP-434 PO (17:17)
[2024-12-17] MEDS ORDERED: CHOL20007 OR (17:18)
[2024-12-18] VITALS (10 sets, daily range): BP systolic 99–128; BP diastolic 41–72; PULSE 58–82; RESP 17–19; TEMP 36.6; O2SAT 90–100
[2024-12-18 05:58] LABS: Basophils # (auto) 0 10 ^3/uL (0-0.2); Basophils % (auto) 0.5 % (0.0-2.0); Eosinophils # (auto) 0.3 10 ^3/uL (0-0.8); Eosinophils % (auto) 3.4 % (0.0-7.0); Hematocrit 38.8 % (36.0-46.0); Hemoglobin 13.4 g/dL (12.2-16.2); Lymphocytes # (auto) 2.9 10 ^3/uL (0.4-5.4); Mean Corpuscular Hemoglobin 29.7 pg (28.0-32.0); Mean Corpuscular Hgb Conc. 34.5 g/dL (32.0-36.0); Mean Corpuscular Volume 86.2 fL (80.0-100.0); Monocytes # (auto) 0.5 10 ^3/uL (0-1.3); Monocytes % (auto) 5.8 % (0.0-12.0); Neutrophils # (auto) 4.8 10 ^3/uL (1.6-8.6); Neutrophils % (auto) 56.3 % (37.0-80.0); Nucleated Red Blood Cells % 0.1 %; Platelet Count (auto) 286 10^3/uL (140-450); Red Blood Cells 4.51 10^6/uL (4.0-5.20); Red Cell Distribution Width 13.3 % (11.8-14.3); White Blood Cell 8.5 10^3/uL (4.4-10.8)
[2024-12-18 06:21] LABS: Alkaline Phosphatase 92 U/L (46-116); Anion Gap 8 (5-15); BUN/Creatinine Ratio 12.9 (10.0-20.0); Calcium 9.8 mg/dL (8.7-10.4); Carbon Dioxide 25 mmol/L (20-31); Sodium 140 mmol/L (136-145); Total Protein 6.9 g/dL (5.7-8.2)
[2024-12-18 06:22] LABS: Albumin 4.6 g/dL (3.2-4.8); Aspartate Aminotransferase 30 U/L (13-40); Bilirubin, Total 0.6 mg/dL (0.2-1.0)
[2024-12-18 06:28] LABS: Alanine Aminotransferase 59 U/L (7-40); Blood Urea Nitrogen 8 mg/dL (9-23); Chloride 107 mmol/L (98-107); Glucose 110 mg/dL (74-106)
[2024-12-18] MEDS: ALBUTEROL SULF 2.5 MG/0.5ML(0.5%) NEB SOLN NEB PRN (09:00)
[2024-12-18] MEDS: LORazepam 2MG/ML-1ML VIAL IV ONE (14:16)
--- NOTE | 2024-12-18 15:33 | DVH ---
EXAM: MRI BRAIN HEAD WO CONTRAST HISTORY: SUSPECTED TIA COMPARISON: None TECHNIQUE: MRI was performed utilizing multiple appropriate imaging planes and pulse sequences. FINDINGS: SUPRATENTORIAL REGION: No evidence for acute ischemia or intracranial hemorrhage. POSTERIOR FOSSA: Unremarkable. BRAINSTEM: Unremarkable. SELLAR/SUPRASELLAR REGION: Unremarkable. VENTRICLES, CISTERNS, SULCI: Age-appropriate. ORBITS: Unremarkable. PARANASAL SINUSES: Mild ethmoid sinus mucosal thickening. Small mucous retention cyst noted in maxil clau and sphenoid sinuses. MASTOID AIR CELLS: Unremarkable. VASCULATURE: Unremarkable. BONES/ SOFT TISSUES: Unremarkable. OTHER: None. IMPRESSION: 1. No acute intracranial process identified.
[2024-12-18] MEDS ORDERED: ATOR-507 PO (16:01)
[2024-12-18] MEDS ORDERED: ASPI81CH59 PO (16:01)
--- NOTE | 2024-12-18 16:04 | DVHDS2 ---
Discharge Summary Date of Admission Dec 17, 2024 at 04:41 Date of Discharge: Dec 18, 2024 Labs/Diagnostic Data: Laboratory Results Test 12/18/24 04:35 12/17/24 00:00 12/16/24 23:49 12/16/24 23:37 White Blood Count 8.5 10^3/uL (4.4-10.8) Red Blood Count 4.51 10^6/uL (4.0-5.20) Hemoglobin 13.4 g/dL (12.2-16.2) Hematocrit 38.8 % (36.0-46.0) Mean Corpuscular Volume 86.2 fL (80.0-100.0) Mean Corpuscular Hemoglobin 29.7 pg (28.0-32.0) Mean Corpuscular Hemoglobin Concent 34.5 g/dL (32.0-36.0) Red Cell Distribution Width 13.3 % (11.8-14.3) Platelet Count 286 10^3/uL (140-450) Mean Platelet Volume 7.1 fL (6.9-10.8) Neutrophils (%) (Auto) 56.3 % (37.0-80.0) Lymphocytes (%) (Auto) 34.0 % (10.0-50.0) Monocytes (%) (Auto) 5.8 % (0.0-12.0) Eosinophils (%) (Auto) 3.4 % (0.0-7.0) Basophils (%) (Auto) 0.5 % (0.0-2.0) Neutrophils # (Auto) 4.8 10 ^3/uL (1.6-8.6) Lymphocytes # (Auto) 2.9 10 ^3/uL (0.4-5.4) Monocytes # (Auto) 0.5 10 ^3/uL (0-1.3) Eosinophils # (Auto) 0.3 10 ^3/uL (0-0.8) Basophils # (Auto) 0 10 ^3/uL (0-0.2) Nucleated Red Blood Cells 0.1 % Sodium Level 140 mmol/L (136-145) Potassium Level 4.0 mmol/L (3.5-5.1) Chloride Level 107 mmol/L (98-107) Carbon Dioxide Level 25 mmol/L (20-31) Anion Gap 8 (5-15) Blood Urea Nitrogen 8 mg/dL (9-23) Creatinine 0.62 mg/dL (0.550-1.02) Glomerular Filtration Rate Calc 115 mL/min (>90) BUN/Creatinine Ratio 12.9 (10.0-20.0) Serum Glucose 110 mg/dL (74-106) Calcium Level 9.8 mg/dL (8.7-10.4) Total Bilirubin 0.6 mg/dL (0.2-1.0) Aspartate Amino Transferase (AST) 30 U/L (13-40) Alanine Aminotransferase (ALT) 59 U/L (7-40) Alkaline Phosphatase 92 U/L (46-116) Total Protein 6.9 g/dL (5.7-8.2) Albumin 4.6 g/dL (3.2-4.8) Troponin I High Sensitivity < 3 ng/L (</=34) Urine Color Yellow (Yellow) Urine Clarity Clear (Clear) Urine pH 5.5 (5.0-9.0) Urine Specific [place] 1.029 (1.001-1.035) Urine Protein Negative (Negative) Urine Ketones Trace (Negative) Urine Blood Negative /uL (Negative) Urine Nitrite Negative (Negative) Urine Bilirubin Negative (Negative) Urine Urobilinogen 2 mg/dL (Negative) Urine Leukocyte Esterase Negative /uL (Negative) Urine RBC 1 /hpf (0 - 4) Urine Microscopic WBC < 1 /HPF (0-5) Urine Squamous Epithelial Cells Few /hpf (<5) Urine Bacteria None seen /hpf (None Seen) Urine Mucus Few (None Seen) Urine Glucose Normal mg/dL (Normal) POC Glucose 122 mg/dl (70-106) Other Laboratory Tests 12/18/24 04:35 Brief Hx & Hospital Course: The patient is a 39-year-old female with past medical history of asthma and kidney stones who presented to [facility] ED with complaint of left- sided weakness. Patient reports experiencing intermittent episode of left-sided weakness of upper and lower extremity for the past 2 weeks, associated headaches, lightheadedness, dizziness, slurred speech, blurry vision, left leg numbness, getting worse today that prompted this visit. Patient was seen and evaluated in the ED, laboratory data shows WBC 10.0, platelets 299, sodium 140, potassium 4.1, BUN 8, creatinine 0.68, glucose 130, troponin 3, blood pressure 137/72, heart rate 74, temperature 97.7 F, O2 saturation 96% on room air. CT of the head/neck revealing dilated pulmonary artery trunk measuring 4.8 cm can be seen in pulmonary arterial hypertension, enlarged thyroid gland. Neurology will follow the patient. Please see medication orders section in the computer. On my assessment, patient denies chest pain, no headache, no diaphoresis, no shortness of breath, no nausea, no vomiting, no fever, no chills. Patient was admitted for further evaluation and medical management. symptoms resolved MRi negative Condition at Discharge: Good Final Diagnosis/Problems List transient ischemic attack pulmonary hypertension Discharge Disposition: Home Discharge Instruct/Medications Diet: Regular Activity: No Restrictions, As Tolerated Follow Up/Referral: pcp in 7 days Medications: aspirin and statin Discharge Statement: "Patient was advised to return to the ER or call 911 if any headaches, dizziness, shortness of breath, chest pain, abdominal pain, bleeding, fevers, or worsening of medical condition. Patient was counseled about treatment plan, medications, possible side effects, patientverbalized understanding. All questions were answered to the best of my ability. This discharge took greater then 30 minutes in planning, reviewing documentation, counseling the patient, and discussing with other team members." ASSESSMENT ASSESSMENT Assessment transient ischemic attack Date of Service: Dec 18, 2024 Billing Provider: POORNIMA YOUNGER MD Common Visit Codes: 11337-TBB/OBS DISCH DAY >30min POORNIMA YOUNGER MD Dec 18, 2024 16:04
== END 2024-12-18 17:30 | disposition home or self-care (01) | DRG 207 ==
LOC: ER 23:22 → OVERFLOW 12-17 04:41 → TELE-WESTW 12-17 23:34
PROVIDERS: ADMIT Hospitalist; ATTEND Hospitalist
DX: I27.21 Secondary pulmonary arterial hypertension (principal); G45.9 Transient cerebral ischemic attack, unspecified; J45.909 Unspecified asthma, uncomplicated; F17.210 Nicotine dependence, cigarettes, uncomplicated; Z82.49 Family history of ischemic heart disease and other diseases of the circulatory system; Z87.442 Personal history of urinary calculi; Z79.899 Other long term (current) drug therapy; Z88.0 Allergy status to penicillin; Z88.8 Allergy status to other drugs, medicaments and biological substances
CPT/HCPCS: 36415; 70496; 70498; 70551; 80053; 81001; 82962; 84484; 85025; 94640; G0378

== ENCOUNTER 2025-02-27 14:14 | Emergency (ER) | payer MEDICAID ==
[~2025-02-27] VITALS: Ht 162.6 cm; Wt 84.2 kg
[~2025-02-27 14:14] MED LIST changes: +ASPI81CH59 PO; +ATOR-507 PO; +CHOL20007 OR; +OMEP-434 PO
[2025-02-27 14:55] LABS: Urine Bacteria FEW /hpf (None Seen); Urine Blood Negative /uL (Negative); Urine Clarity Clear (Clear); Urine Protein, UAD Negative (Negative); Urine Specific Gravity 1.008 (1.001-1.035); Urine Squamous Epithelial Cell FEW /hpf (<5); Urine Urobilinogen Normal (Negative); Urine WBC < 1 /HPF (0-5)
[2025-02-27 15:15] LABS: Urine Color Light-Yellow (Yellow)
--- NOTE | 2025-02-27 15:36 | ED.PDOC ---
GI ASSESSMENT HPI Comments 39 year old female presents to the ED with a chief complaint of rectal pain onset 1 week. Patient states she recently returned from [place]. Patient has been experiencing constipation, abdominal pain, rectal pain with swelling, burning sensation with bowel movement. When she has bowel movement, it is mucous, yellow. PMHx hemorrhoids states pain is different, there is no bleeding. Denies rectal bleeding, blood in stool, fever, chills, hematemesis, nausea, vomiting. No other symptoms or modfiyng factors present at this time. Chief Complaint: Abdominal Pain Time Seen by MD: 15:20 Primary Care Provider: SHEMAR Reviewed Notes: Medications, Allergies Allergies: Coded Allergies: Latex (Verified Allergy, Unknown, 12/16/24) Penicillin V (Verified Allergy, Unknown, 01/21/17) Uncoded Allergies: ALL CILLINS (Allergy, Unknown, 01/21/17) Home Meds Active Scripts Atorvastatin Calcium (Lipitor) 40 Mg Tab, 1 TAB PO DAILY for 90 Days, #90 TAB 5 Refills Prov:POORNIMA YOUNGER MD 12/18/24 Aspirin (Aspirin Low Dose) 81 Mg Chw, 81 MG PO DAILY for 90 Days, #90 TAB.CHEW Prov:POORNIMA YOUNGER MD 12/18/24 Cyclobenzaprine Hcl (Cyclobenzaprine Hcl) 5 Mg Tab, 1 TAB PO TID, #30 TAB Prov:ADEEL NEWELL 12/16/23 Ibuprofen Micronized (Ibuprofen) 800 Mg Tab, 800 MG PO Q6HP PRN, #20 TAB Prov:ELO DOMINGUEZ PAC 11/29/23 Dicloxacillin Sodium (Dicloxacillin Sodium) 250 Mg Cap, 250 MG PO QID for 10 Days, #40 CAP Prov:ELO DOMINGUEZ PAC 11/29/23 Albuterol Sulfate (VENTOLIN MDI) 90 Mcg Ih, 90 MCG IN QIDP, #1 INH 0 Refills Prov:ANGELICA MACIEL 12/12/21 Benzonatate (Tessalon Perles) 100 Mg Cap, 1 CAP PO TID PRN, #30 CAP Prov:ANGELICA MACIEL 12/12/21 Prednisone (Prednisone) 20 Mg Tab, 20 MG PO BID for 5 Days, #10 MG 0 Refills Prov:ANGELICA MACIEL 12/12/21 Clindamycin Hcl (Clindamycin Hcl) 300 Mg Cap, 1 CAP PO TID for 10 Days, #30 CAP Prov:ANGELICA MACIEL 12/12/21 Acetaminophen (Acetaminophen) 500 Mg Tab, 500 MG PO QIDP, #30 TAB 0 Refills Prov:RAHEEMANGELICA BENOIT 12/12/21 Reported Medications Cholecalciferol (VITAMIN D3) 2,000 Unit Tab, 1000 UNIT OR, TAB 12/17/24 Omeprazole Magnesium (Omeprazole) 20 Mg Tab, 40 MG PO DAILY, TAB 12/17/24 Docusate Sodium (Colace) 100 Mg Cap, 2 CAP PO HS, #30 CAP 04/15/17 Vit W/ Ferrous Fumara ( One Daily) Daily Tab, 1 TAB PO DAILY, #90 TAB 3 Refills 04/15/17 Information Source: Patient Mode of Arrival: Ambulatory Timing: Weeks Duration: Since onset Prehospital treatment: None Quality: Sharp Vomitus: None Stool: Yellow Severity: Moderate Recent: Travel Recent Hx of: Constipation Pain Location: Diffuse Modifying Factors: Nothing Associated sign and symptoms: Constipation, Abdominal Pain Past Medical History PAST MEDICAL HISTORY: Asthma, Kidney Stones Past Medical History (Other): hemorrhoids Surgical History: Hysterectomy CONFIGURATION MANAGEMENT MANAGER History: Denies all CONFIGURATION MANAGEMENT MANAGER Hx Family History Family History: Unknown, Family hx of HTN Social History Smoker: Cigarettes, Less Than 1 Pack/Day Alcohol: Rarely Drugs: Denies Drug Use Lives In: Home Constitutional: denies: chills, diaphoresis, fatigue, fever, malaise, sweats, weakness, others EENTM: denies: blurred vision, double vision, ear bleeding, ear discharge, ear drainage, ear pain, ear ringing, eye pain, eye redness, hearing loss, mouth pain, mouth swelling, nasal discharge, nose bleeding, nose congestion, nose pain, photophobia, tearing, throat pain, throat swelling, voice changes, others Respiratory: denies: cough, hemoptysis, orthopnea, SOB at rest, shortness of breath, SOB with excertion, stridor, wheezing, others Cardiovascular: denies: chest pain, dizzy spells, diaphoresis, Dyspnea on exertion, edema, irregular heart beat, left arm pain, lightheadedness, palpitations, PND, syncope, others Gastrointestinal: reports: abdominal pain, constipated, rectal pain; denies: abdomen distended, blood streaked bowels, diarrhea, dysphagia, difficulty swallowing, hematemesis, melena, nausea, poor appetite, poor fluid intake, rectal bleeding, vomiting, others Genitourinary: denies: abnormal vagina bleeding, burning, dyspareunia, dysuria, flank pain, frequency, hematuria, incontinence, pain, , vagina discharge, urgency, others Neurological: denies: dizziness, fainting, headache, left sided numbness, left sided weakness, numbness, paresthesia, pre-existing deficit, right sided numbness, right sided weakness, seizure, speech problems, tingling, tremors, weakness, others Musculoskeletal: denies: back pain, gout, joint pain, joint swelling, muscle pain, muscle stiffness, neck pain, others Integumetry: denies: bruises, change in color, change in hair/nails, dryness, laceration, lesions, lumps, rash, wounds, others Allergic/Immunocompromised: denies: Difficulty Healing, Frequent Infections, Hives, Itching, others Hematologic/Lymphatic: denies: anemia, blood clots, easy bleeding, easy bruising, swollen glands, others Endocrine: denies: excessive hunger, excessive sweating, excessive thirst, excessive urination, flushing, intolerance to cold, intolerance to heat, unexplained weight gain, unexplained weight loss, others Psychiatric: denies: anxiety, bipolar disorder, depression, hopeless, panic disorder, schizophrenia, sleepless, suicidal, others All Other Systems: Reviewed and Negative Physical Exam General Appearance: No Apparent Distress, Normal HEENT: Normal ENT Inspection, Pharynx Normal, TMs Normal Neck: Full Range of Motion, Non-Tender, Normal, Normal Inspection Respiratory: Chest Non-Tender, Lungs Clear, No Accessory Muscle Use, No Respiratory Distress, Normal Breath Sounds Cardiovascular: No Edema, No JVD, No Murmur, No Gallop, Normal Peripheral Pulses, Regular Rate/Rhythm Breast Exam: Deferred Gastrointestinal: No Organomegaly, Non Tender, No Pulsatile Mass, Normal Bowel Sounds, Soft Genitalia: Deferred Pelvic: Deferred Rectal: Deferred Extremities: No calf tenderness, Normal capillary refill, Normal inspection, Normal range of motion, Non-tender, No pedal edema Musculoskeletal : Apperance: Normal Neurologic: Alert, horse breaker II-XII nml as Tested, No Motor Deficits, Normal Affect, Normal Mood, No Sensory Deficits Cerebellar Function: Normal Reflexes: Normal Skin: Dry, Normal Color, Warm Lymphatic: No Adenopathy Was a procedure done? Was a procedure done?: No GI differential Dx Differential Diagnosis: Appendicitis, Bowel Obstruction, Cholecystitis, Food Poisoning X-Ray, Labs, Meds, VS Vital Signs Date Time Temp Pulse Resp B/P (MAP) Pulse Ox O2 Delivery O2 Flow Rate FiO2 02/27/25 16:47 98.1 80 20 110/64 (79) 95 98.1 02/27/25 14:35 98.2 87 16 122/57 (78) 97 98.2 Lab Test 02/27/25 15:32 02/27/25 14:00 Range/Units White Blood Count 8.3 4.4-10.8 10^3/uL Red Blood Count 4.49 4.0-5.20 10^6/uL Hemoglobin 12.9 12.2-16.2 g/dL Hematocrit 38.7 36.0-46.0 % Mean Corpuscular Volume 86.2 80.0-100.0 fL Mean Corpuscular Hemoglobin 28.8 28.0-32.0 pg Mean Corpuscular Hemoglobin Concent 33.4 32.0-36.0 g/dL Red Cell Distribution Width 13.2 11.8-14.3 % Platelet Count 312 140-450 10^3/uL Mean Platelet Volume 6.8 L 6.9-10.8 fL Neutrophils (%) (Auto) 57.1 37.0-80.0 % Lymphocytes (%) (Auto) 34.7 10.0-50.0 % Monocytes (%) (Auto) 4.5 0.0-12.0 % Eosinophils (%) (Auto) 3.1 0.0-7.0 % Basophils (%) (Auto) 0.6 0.0-2.0 % Neutrophils # (Auto) 4.8 1.6-8.6 10 ^3/uL Lymphocytes # (Auto) 2.9 0.4-5.4 10 ^3/uL Monocytes # (Auto) 0.4 0-1.3 10 ^3/uL Eosinophils # (Auto) 0.3 0-0.8 10 ^3/uL Basophils # (Auto) 0 0-0.2 10 ^3/uL Nucleated Red Blood Cells 0.2 % Sodium Level 140 136-145 mmol/L Potassium Level 3.9 3.5-5.1 mmol/L Chloride Level 106 98-107 mmol/L Carbon Dioxide Level 26 20-31 mmol/L Anion Gap 8 5-15 Blood Urea Nitrogen 7 L 9-23 mg/dL Creatinine 0.62 0.550-1.02 mg/dL Glomerular Filtration Rate Calc 115 >90 mL/min BUN/Creatinine Ratio 11.3 10.0-20.0 Serum Glucose 149 H 74-106 mg/dL Calcium Level 9.1 8.7-10.4 mg/dL Total Bilirubin 0.3 0.2-1.0 mg/dL Aspartate Amino Transferase (AST) 12 L 13-40 U/L Alanine Aminotransferase (ALT) 35 7-40 U/L Alkaline Phosphatase 115 46-116 U/L Total Protein 6.6 5.7-8.2 g/dL Albumin 4.5 3.2-4.8 g/dL Lipase 55 H 12-53 U/L Urine Color Light-yellow Yellow Urine Clarity Clear Clear Urine pH 7.0 5.0-9.0 Urine Specific [place] 1.008 1.001-1.035 Urine Protein Negative Negative Urine Ketones Negative Negative Urine Blood Negative Negative /uL Urine Nitrite Negative Negative Urine Bilirubin Negative Negative Urine Urobilinogen Normal Negative mg/dL Urine Leukocyte Esterase Negative Negative /uL Urine RBC <1 0 - 4 /hpf Urine Microscopic WBC < 1 0-5 /HPF Urine Squamous Epithelial Cells Few <5 /hpf Urine Bacteria Few H None Seen /hpf Urine Glucose Normal Normal mg/dL X-Ray, Labs, Meds, VS Comment Imaging: X-rays and CT scans were reviewed and interpreted by this provider, imaging shows large stool burden. Pending radiology review. Laboratory: Labs reviewed and interpreted by this provider. No significant abnormalities noted. Patient has prior medical visits reviewed. Med reconciliation performed Vital signs reviewed Time of 1ST Reevaluation: 15:50 Reevaluation 1ST: Unchanged Patient Education/Counseling: Diagnosis, Treatment, Prognosis, Need For Follow Up (Follow up in the emergency department in the next 24-48 hours if symptoms worsen. It was advised to follow up with your primary care doctor in the next 3-4 days for further evaluation.) Family Education/Counseling: Diagnosis, Treatment, Prognosis Departure 1 Departure Time of Disposition: 16:54 Impression: Primary Impression: Non-specific colitis Additional Impression: Constipation Qualified Codes: K59.01 - Slow transit constipation Disposition: HOME / SELF CARE / HOMELESS Condition: Fair Discharged With: Self Critical Care Note Critical Care Time?: No Stability Stability form required: No Heart Score Heart Score: Heart Score Response (Comments) Value History N/A 0 EKG N/A 0 Age N/A 0 Risk Factors N/A 0 Troponin N/A 0 Total 0 I personally scribed for ADEEL NEWELL ([email or web address]) on 02/27/25 at 15:36. Electronically submitted by Kae Gale ([email or web address]). ADEEL NEWELL February 27, 2025 15:36
[2025-02-27 15:44] LABS: Basophils # (auto) 0 10 ^3/uL (0-0.2); Basophils % (auto) 0.6 % (0.0-2.0); Eosinophils # (auto) 0.3 10 ^3/uL (0-0.8); Eosinophils % (auto) 3.1 % (0.0-7.0); Hematocrit 38.7 % (36.0-46.0); Hemoglobin 12.9 g/dL (12.2-16.2); Lymphocytes # (auto) 2.9 10 ^3/uL (0.4-5.4); Lymphocytes % (auto) 34.7 % (10.0-50.0); Mean Corpuscular Hemoglobin 28.8 pg (28.0-32.0); Mean Corpuscular Hgb Conc. 33.4 g/dL (32.0-36.0); Mean Corpuscular Volume 86.2 fL (80.0-100.0); Monocytes # (auto) 0.4 10 ^3/uL (0-1.3); Monocytes % (auto) 4.5 % (0.0-12.0); Neutrophils # (auto) 4.8 10 ^3/uL (1.6-8.6); Neutrophils % (auto) 57.1 % (37.0-80.0); Nucleated Red Blood Cells % 0.2 %; Platelet Count (auto) 312 10^3/uL (140-450); Red Blood Cells 4.49 10^6/uL (4.0-5.20); Red Cell Distribution Width 13.2 % (11.8-14.3); White Blood Cell 8.3 10^3/uL (4.4-10.8)
[2025-02-27 15:55] LABS: Alanine Aminotransferase 35 U/L (7-40); Albumin 4.5 g/dL (3.2-4.8); Alkaline Phosphatase 115 U/L (46-116); Anion Gap 8 (5-15); BUN/Creatinine Ratio 11.3 (10.0-20.0); Bilirubin, Total 0.3 mg/dL (0.2-1.0); Calcium 9.1 mg/dL (8.7-10.4); Carbon Dioxide 26 mmol/L (20-31); Chloride 106 mmol/L (98-107); Potassium 3.9 mmol/L (3.5-5.1); Sodium 140 mmol/L (136-145); Total Protein 6.6 g/dL (5.7-8.2)
[2025-02-27 15:59] LABS: Aspartate Aminotransferase 12 U/L (13-40); Blood Urea Nitrogen 7 mg/dL (9-23); Glucose 149 mg/dL (74-106); Lipase 55 U/L (12-53)
--- NOTE | 2025-02-27 16:22 | DVH ---
Exam: CT CT AB PEL WO CON-NO ORAL OR IV History: abd pain Comparison Study: None TECHNIQUE: Multidetector CT of the abdomen was performed from lung bases to pubic symphysis. Imaging was performed without IV contrast. Axial, coronal and sagittal multiplanar reformats were obtained fr om the axial data set by the technologist. Radiation Dose Information: CT Dose: CTDI volume is 21.73 mGy. Dose-length product is 1181.41 mGy*cm FINDINGS: Evaluation of solid organs is limited due to lack of intravenous contrast use. Findings: Lung Bases: No acute or significant lung base finding. Normal heart size. No pleural or pericardial effusion. Liver: The liver is normal in size. No focal lesions. Gallbladder and Biliary Tree: Contracted Spleen: Unremarkable Pancreas: The pancreas is grossly normal in appearance. Adrenal Glands: Unremarkable Kidneys: Kidneys are grossly normal without calculi or hydronephrosis. Bladder: Grossly unremarkable for degree of distention. Bowel: The stomach is grossly normal in appearance. Small bowel and colon are normal in caliber and d istribution. Large stool burden in the right transverse colon. The appendix is not visualized; howeve r, no secondary findings of acute appendicitis identified. Ascites: Absent Lymphadenopathy: No mesenteric, retroperitoneal or periportal lymphadenopathy. Abdominal Wall and Mesentery: Unremarkable. Vasculature: The visualized abdominal aorta is normal in size and caliber. Evaluation of abdominal a nd pelvic vessels is limited due to lack of intravenous contrast. Pelvic Organs: Unremarkable Musculoskeletal: No aggressive focal bony lesions, acute fractures or dislocation. Soft tissues: Unremarkable IMPRESSION: 1. Gallbladder is contracted no calcified gallstones seen 2. Large stool burden in the right and transverse colons. 3. No nephrolithiasis or hydronephrosis. Radiation optimization: All CT scans at this facility use at least one of these dose optimization te chniques: automated exposure control mA and/or kV adjustment per patient size (includes targeted exa ms where dose is matched to clinical indication) or iterative reconstruction.
[2025-02-27 16:47] VITALS: BP 110/64; PULSE 80; RESP 20; TEMP 98.1; O2SAT 95
[2025-02-27] MEDS ORDERED: LACT10SO3 PO (17:19)
== END 2025-02-27 17:28 | disposition home or self-care (01) ==
LOC: ER 14:14
DX: K52.9 Noninfective gastroenteritis and colitis, unspecified (principal); K59.00 Constipation, unspecified; J45.909 Unspecified asthma, uncomplicated; Z79.82 Long term (current) use of aspirin; Z79.899 Other long term (current) drug therapy; Z87.19 Personal history of other diseases of the digestive system; Z90.710 Acquired absence of both cervix and uterus; Z88.0 Allergy status to penicillin
CPT/HCPCS: 36415; 74176; 80053; 81001; 83690; 85025